=== PATIENT | female | born 1965 | race Caucasian/White ===

== ENCOUNTER 2017-12-21 16:11 | Emergency (ER) | payer MEDICARE, MEDICAID ==
[~2017-12-21] VITALS: Ht 165.1 cm; Wt 75.1 kg
[~2017-12-21 16:11] MED LIST: ALBU6.7H INH; AMIT25TA PO; BACL-19 PO; FLUT10SP NAS; GABA600T PO; GLYB5TAB3 PO; LISI-170 PO; METF-162 PO; MORP10CA10 PO; OXYC5CAP2 PO; SIMV10TA3 PO
[2017-12-21 16:15] VITALS: BP 154/77
[2017-12-21] MEDS ORDERED: KETOROLAC 30 MG/1 ML ONE (17:59)
[2017-12-21] MEDS ORDERED: KETOROLAC 30 MG/1 ML IM ONE (18:00)
== END 2017-12-21 18:36 | disposition home or self-care (01) ==
LOC: ED 18:30
DX: R07.81 Pleurodynia (principal); I10 Essential (primary) hypertension; E11.9 Type 2 diabetes mellitus without complications; W01.0XXA Fall on same level from slipping, tripping and stumbling without subsequent striking against object, initial encounter; Y93.89 Activity, other specified; Y92.89 Other specified places as the place of occurrence of the external cause; Y99.8 Other external cause status
CPT/HCPCS: 71101; 96372; 99284; J1885

== ENCOUNTER 2020-03-28 15:51 | Emergency (ER) | payer OTHER, MEDICAID ==
[~2020-03-28] VITALS: Ht 165.1 cm; Wt 57.6 kg
[~2020-03-28 15:51] MED LIST changes: -ALBU6.7H INH; +ALBU6.7H8 INH; +SIMV10TA18 PO; -SIMV10TA3 PO
--- NOTE | 2020-03-28 16:04 | NUR ---
RESOLUTE PROFESSIONAL HAD DR. JO EVALUATE PT IN TRIAGE. OKAY BY AMINAH TO PUT PT BACK IN ROOM.
--- NOTE | 2020-03-28 16:30 | NUR ---
PT HAS CO WEAKNESS, DIZZINESS. PT STATES SHE THINKS SHE IS HAVING MINI STROKES. RECENT TRAVEL FROM [place] AND HAS NOT BEEN TAKING MEDICINES. DENIES CP, SOB, COUGH. DENIES MCCANN OR VISIO CHANGES. NEURO INTACT. NO SLURRED SPEECH OR FACIAL DROOP
[2020-03-28] MEDS ORDERED: ACETAMINOPHEN 500 MG TABLET PO ONE (17:00)
[2020-03-28 17:20] LABS: ALBUMIN 3.1 g/dL (3.4-5.0); ANION GAP 8 mmol/L (5-15); CALCIUM 8.4 mg/dL (8.5-10.1); CHLORIDE 95 mmol/L (98-107)
[2020-03-28 17:22] LABS: BASOPHILS # (AUTO) 0.02 x10^3/uL (0-0.1); BASOPHILS % (AUTO) 0 % (0-1); CREATININE 1.29 mg/dL (0.55-1.02); EOSINOPHILS # (AUTO) 0.15 x10^3/uL (0-0.4); EOSINOPHILS % (AUTO) 2 % (1-7); LYMPHOCYTES # (AUTO) 2.43 x10^3/uL (1-3.4); LYMPHOCYTES % (AUTO) 35 % (22-44); MD NO; MEAN CORPUSCULAR HEMOGLOBIN 30.4 pg (27.0-34.8); MEAN CORPUSCULAR VOLUME 89.3 fL (80-100); MEAN PLATELET VOLUME 9.7 fL (7.4-10.4); MONOCYTES # (AUTO) 0.48 x10^3/uL (0.2-0.8); MONOCYTES % (AUTO) 7 % (2-9); NEUTROPHILS # (AUTO) 3.88 x10^3/uL (1.8-6.8); NEUTROPHILS % (AUTO) 56 % (42-75); PLATELET COUNT 182 x10^3/uL (130-400); RED CELL DISTRIBUTION WIDTH 14.1 % (9.6-15.2)
[2020-03-28] MEDS ORDERED: ACETAMINOPHEN 500 MG TABLET ONE (17:52)
[2020-03-28] MEDS ORDERED: INSULIN SINGLE DOSE, ER ONE (17:52)
[2020-03-28 17:59] LABS: ACETONE, SERUM Negative (Negative)
[2020-03-28] MEDS ORDERED: INSULIN REGULAR 100 UNITS/ML, 3ML VIAL IVPush ONE (18:00)
[2020-03-28] MEDS ORDERED: SODIUM CHLORIDE 0.9% 1,000ML IVBOLUS ONE (18:00)
[2020-03-28 18:09] VITALS: BP 150/78
--- NOTE | 2020-03-28 18:45 | NUR ---
BS 374, PT RESTING. NO NEEDS AT THIS TIME
--- NOTE | 2020-03-28 18:53 | NUR ---
REPORT TO KALI
--- NOTE | 2020-03-28 19:00 | NUR ---
WENT TO PT'S ROOM TO ASSESS AND GET VITALS. PT WAS NOT IN THE ROOM. WENT TO ROOM 3 AND WENT BACK TO THE ROOM AND PT WAS NOT IN THE ROOM. PT ASSUMED TO HAVE ELOPED THE DEPARTMENT. RETAIL BANKER INFORMED. ASSUMED PT LEFT WITH IV IN THERE WAS NOT IV CATHETER IN THE GARBAGE. MULTIPLE ATTEMPTS MADE TO CALL PT THAT WERE UNANSWERED. ROSEANNA FLORES CALLED TO REPORT IV STILL IN PLACE.
--- NOTE | 2020-03-28 19:40 | NUR ---
WENT THROUGH THE TRASH IN THE ROOM AND FOUND A 20G IV WITH THE CATHETER TIP INTACT IN THE GARBAGE. RESEARCH ENGINEER MARINE EQUIPMENT INFORMED.
== END 2020-03-28 19:37 | disposition left against medical advice (07) ==
LOC: ED 17:59 → UNDOADMIN 18:00 → EDIP 18:00 → ED 18:02
DX: G44.219 Episodic tension-type headache, not intractable (principal); R42 Dizziness and giddiness; I10 Essential (primary) hypertension; F17.200 Nicotine dependence, unspecified, uncomplicated; E11.65 Type 2 diabetes mellitus with hyperglycemia; Z79.4 Long term (current) use of insulin
CPT/HCPCS: 36415; 70450; 80048; 82010; 82040; 82962; 85025; 96361; 96374; 99284; J1815; J7030